=== PATIENT | male | born 2000 | race Caucasian/White ===

== ENCOUNTER 2022-07-13 16:59 | Emergency (ER) | payer MEDICAID, OTHER ==
[~2022-07-13] VITALS: Ht 177.8 cm; Wt 104.3 kg
[2022-07-13] MEDS ORDERED: ONDANSETRON 4 MG/2 ML VIAL ONE (17:55)
[2022-07-13] MEDS ORDERED: ONDANSETRON 4 MG/2 ML VIAL IV ONE (18:00)
[2022-07-13] MEDS ORDERED: IV NS 1000 ML 1,000 ML IV ONE ×2 (18:00→20:30)
[2022-07-13] MEDS ORDERED: ONDANSETRON ODT 4 MG TAB.RAPDIS ONE (18:22)
[2022-07-13] MEDS ORDERED: ONDANSETRON HCL 4 MG TABLET ONE (18:46)
[2022-07-13 19:42] LABS: HEMATOCRIT 49.3 % (36.7-47.1); MEAN CORPUSCULAR HEMOGLOBIN 30.6 uug (23.8-33.4); MEAN CORPUSCULAR VOLUME 87.3 fL (73.0-96.2); PLATELET COUNT (AUTO) 244 K/uL (152-348)
[2022-07-13 20:12] LABS: BILIRUBIN,DIRECT 0.3 mg/dL (0.0-0.2); BILIRUBIN,TOTAL 1.5 mg/dL (0.2-1.0); CREATININE 1.3 mg/dL (0.6-1.3); POTASSIUM 3.9 mmol/L (3.5-5.1); TOTAL PROTEIN, SERUM 8.4 g/dL (6.4-8.2)
--- NOTE | 2022-07-13 20:14 | NUR ---
PATIENT RESTING IN BED WITH FAMILY AT BEDSIDE, INFORMED OF PLAN OF CARE AT THIS TIME. #20G ESTABLISHED IN LEFT FOREARM, BLOOD COLLECTED AND SENT TO LAB. IVF INFUSING PER ORDER, NO S/S OF ANY DISTRESS NOTED AT THIS TIME.
[2022-07-13 20:19] LABS: *BILIRUBIN,URIN 1+ (NEGATIVE); *BLOOD, URINE NEGATIVE (NEGATIVE); *CLARITY,URINE CLEAR (CLEAR); *COLOR,URINE YELLOW (YELLOW); *KETONES,URINE 1+ (NEGATIVE); *UROBILINOGEN,URINE 0.2 E.U./dl (NORMAL); LEUKOCYTE ESTERASE ,URINE NEGATIVE (NEGATIVE); NITRITE, URINE NEGATIVE (NEGATIVE); UGLUCOSE NEGATIVE (NEGATIVE)
[2022-07-13] MEDS ORDERED: PROC10TA29 PO (22:31)
[2022-07-13 22:41] VITALS: BP 118/88
--- NOTE | 2022-07-13 22:41 | NUR ---
ACI GIVEN, HL REMOVED REMAINS STABLE FOR DISCHARGE.
== END 2022-07-13 22:42 | disposition home or self-care (01) ==
LOC: ER 16:59
DX: R11.2 Nausea with vomiting, unspecified (principal); R10.84 Generalized abdominal pain
CPT/HCPCS: 99283; 96374; 96361; 80076; 80048; 81003; 83690; 85025; 36415; J2405; J7040 ×2; A4663; Q0162